=== PATIENT | female | born 1965 | race Caucasian/White ===

== ENCOUNTER 2017-12-01 18:58 | Emergency (ER) | payer BC ==
[2017-12-01] MEDS ORDERED: traMADol HCl 50 MG TAB ONE (20:05)
--- NOTE | 2017-12-01 22:52 | RAD ---
RIGHT LEG 12/01/17 AP and lateral views are provided. No fracture was detected. The tibia and fibula appear intact. Ther e is medial joint space narrowing and bony spurring at the knee. IMPRESSION: No acute bony findings. POS: HOME
--- NOTE | 2017-12-01 22:59 | RAD ---
RIGHT ANKLE THREE VIEWS: 12/01/17 No acute fracture was seen. The joint space may be slightly narrowed but otherwise appears normal. A little bit of bony spurring at the tip of the medial malleolus may be from old trauma. There is also some bone spurring in the intertarsal joints between the navicular and cuneiforms. There might have b een an old injury here. A large calcaneal spur is present. IMPRESSION: Chronic changes but no acute findings. POS: HOME
== END 2017-12-01 20:11 | disposition home or self-care (01) ==
LOC: BURERS 18:58
DX: S81.812A Laceration without foreign body, left lower leg, initial encounter (principal); S93.402A Sprain of unspecified ligament of left ankle, initial encounter; E11.9 Type 2 diabetes mellitus without complications; E78.5 Hyperlipidemia, unspecified; I10 Essential (primary) hypertension; F32.9 Major depressive disorder, single episode, unspecified; Z79.899 Other long term (current) drug therapy; Z79.84 Long term (current) use of oral hypoglycemic drugs; X50.1XXA Overexertion from prolonged static or awkward postures, initial encounter

== ENCOUNTER 2020-02-22 19:10 | Emergency (ER) | payer OTHER ==
--- NOTE | 2020-02-22 20:37 | RAD ---
PORTABLE CHEST: Date: 02-22-2020 An AP portable film at 2007 is compared with a 12-14-2011 study. FINDINGS: The sensitivity of this exam is quite low. The heart is enlarged as before. The vessels seem congested today. No obvious lobar consolidations we re seen, though the lung bases are difficult to see well. No large effusions are present but I cannot rule out some fluid on the right. IMPRESSION: Findings most suggestive of congestive failure. POS: HOME
== END 2020-02-22 21:08 | disposition short-term general hospital (02) ==
LOC: BURERS 19:10
DX: M79.89 Other specified soft tissue disorders (principal); I11.0 Hypertensive heart disease with heart failure; I50.9 Heart failure, unspecified; R79.1 Abnormal coagulation profile; E11.9 Type 2 diabetes mellitus without complications; E78.5 Hyperlipidemia, unspecified; E78.00 Pure hypercholesterolemia, unspecified; I10 Essential (primary) hypertension; F41.9 Anxiety disorder, unspecified; F32.9 Major depressive disorder, single episode, unspecified; Z79.899 Other long term (current) drug therapy; Z79.82 Long term (current) use of aspirin; Z79.84 Long term (current) use of oral hypoglycemic drugs
CPT/HCPCS: 36416; 71045; 84484; 85379; 93005; 94760

== ENCOUNTER 2020-03-03 08:46 | Inpatient (IN) | payer OTHER ==
[2020-03-04] MEDS ORDERED: metFORMIN 500 MG TAB PO SCH (17:00)
[2020-03-04] MEDS ORDERED: Dextrose 5% in Water 1,000 ML IV PRN (17:21)
[2020-03-04] MEDS ORDERED: Dextrose 50% Abboject 50 ML SYRINGE SLOW IVP PRN (17:21)
[2020-03-04] MEDS: Metoprolol Tartrate 25 MG TAB PO SCH (21:00)
[2020-03-04] MEDS: Rifampin 150 MG CAP PO SCH (21:44)
[2020-03-04] MEDS: Atorvastatin Calcium 40 MG TAB PO SCH (21:45)
[2020-03-04] MEDS: Amoxicillin/Potassium Clav 500 MG TAB PO SCH (21:45)
[2020-03-04] MEDS: Nystatin Powder 15 GM BOT TOP PRN (22:44)
[2020-03-05 05:39] LABS: ALT (SGPT) 16 U/L (8-55); AST (SGOT) 13 U/L (5-34); Albumin 3.4 g/dL (3.5-5.0); Alkaline Phosphatase 273 U/L (40-110); Anion Gap 12 mmol/L (10-20); BUN (Urea Nitrogen) 57 mg/dL (9.8-20.1); Bilirubin, Total 0.8 mg/dL (0.2-1.2); Calc. Creatinine Clearance 107 mL/min (70-130); Carbon Dioxide 27 mmol/L (22-29); Chloride 110 mmol/L (98-107); Estimated GFR-MDRD 31; Globulin 3.2 g/dL (2.4-3.5); Glucose 156 mg/dL (70-105); Potassium 4.3 mmol/L (3.5-5.1); Protein, Total 6.6 g/dL (6.0-8.3); Sodium 145 mmol/L (136-145)
[2020-03-05 05:44] LABS: #Basophils 0.1 thou/uL (0.0-0.2); #Eosinphils 0.2 thou/uL (0.0-0.7); #Lymphocytes 1.1 thou/uL (1.20-3.40); #Monocytes 1.1 thou/uL (0.11-0.59); #Neutrophils 6.4 thou/uL (1.40-6.50); %Basophils 1.1 % (0.0-1.0); %Lymphocytes 12.5 % (21.0-51.0); %Monocytes 12.2 % (0.0-10.0); %Neutrophils 72.3 % (42.0-75.0); Anisocytosis SLIGHT = 6-15 cells (100X) (0-5/hpf); Hemoglobin 10.2 g/dL (12.0-16.0); Hypochromia SLIGHT = 6-15 cells (100X) (0-5/hpf); MDiff Complete? YES; Mean Corpuscular HGB CONC 27.4 g/dL (32.0-36.0); Mean Corpuscular Hemoglobin 26.4 pg (27.0-31.0); Mean Corpuscular Volume 96.5 fL (78.0-98.0); Mean Platelet Volume 6.5 fL (7.4-10.4); Platelet Count 270 thou/uL (130-400); Platelet Morphology Comment Appears Adequate; RBC Distribution Width 18.3 % (11.5-14.5); Red Blood Cell (RBC) Count 3.87 mill/uL (4.20-5.40); Stomatocytes SLIGHT = 2-5 cells (100X) (0-1/hpf); White Blood Cell (WBC) Count 8.9 thou/uL (4.8-10.8)
[2020-03-05] MEDS: Lantus 1000 UNITS/10 ML VIAL SC SCH (08:59)
[2020-03-05] MEDS ORDERED: Losartan Potassium 50 MG TAB PO SCH (09:00)
[2020-03-05] MEDS ORDERED: Amlodipine 5 MG TAB PO SCH (09:00)
[2020-03-05] MEDS: Aspirin 81 mg Enteric Coated Tablet PO SCH (09:01)
[2020-03-05] MEDS: Folic Acid 1 MG TAB PO SCH (09:01)
[2020-03-05] MEDS: FLUoxetine HCl 10 MG CAP PO SCH (09:01)
[2020-03-05] MEDS: Losartan Potassium 50 MG TAB PO SCH (09:02)
[2020-03-05] MEDS: Furosemide 20 MG TAB PO SCH (09:02)
[2020-03-05] MEDS: Amoxicillin/Potassium Clav 500 MG TAB PO SCH ×2 (09:02→20:36)
[2020-03-05] MEDS: Rifampin 150 MG CAP PO SCH ×2 (09:03→20:37)
[2020-03-05] MEDS: Metoprolol Tartrate 25 MG TAB PO SCH ×3 (09:12→20:38)
[2020-03-05] MEDS: traMADol HCl 50 MG TAB PO PRN ×2 (11:27→20:36)
[2020-03-05] MEDS: Nystatin Powder 15 GM BOT TOP PRN (11:28)
[2020-03-05] MEDS: HumaLOG 300 UNITS/3 ML VIAL SC PRN ×3 (13:15→20:45)
[2020-03-05] MEDS: Atorvastatin Calcium 40 MG TAB PO SCH (20:37)
[2020-03-06] MEDS: Lantus 1000 UNITS/10 ML VIAL SC SCH (08:42)
[2020-03-06] MEDS: FLUoxetine HCl 10 MG CAP PO SCH (08:43)
[2020-03-06] MEDS: Amoxicillin/Potassium Clav 500 MG TAB PO SCH ×2 (08:44→21:52)
[2020-03-06] MEDS: Losartan Potassium 50 MG TAB PO SCH (08:44)
[2020-03-06] MEDS: Aspirin 81 mg Enteric Coated Tablet PO SCH (08:44)
[2020-03-06] MEDS: Rifampin 150 MG CAP PO SCH ×2 (08:44→21:51)
[2020-03-06] MEDS: Furosemide 20 MG TAB PO SCH (08:44)
[2020-03-06] MEDS: Folic Acid 1 MG TAB PO SCH (08:45)
[2020-03-06] MEDS: Metoprolol Tartrate 25 MG TAB PO SCH ×2 (08:53→21:52)
[2020-03-06] MEDS: traMADol HCl 50 MG TAB PO PRN (13:30)
[2020-03-06] MEDS: Atorvastatin Calcium 40 MG TAB PO SCH (21:51)
[2020-03-07] MEDS: traMADol HCl 50 MG TAB PO PRN ×2 (00:26→15:21)
[2020-03-07] MEDS: Metoprolol Tartrate 25 MG TAB PO SCH ×2 (08:49→20:52)
[2020-03-07] MEDS: FLUoxetine HCl 10 MG CAP PO SCH (08:49)
[2020-03-07] MEDS: Losartan Potassium 50 MG TAB PO SCH (08:49)
[2020-03-07] MEDS: Rifampin 150 MG CAP PO SCH ×2 (08:49→20:53)
[2020-03-07] MEDS: Aspirin 81 mg Enteric Coated Tablet PO SCH (08:50)
[2020-03-07] MEDS: Furosemide 20 MG TAB PO SCH (08:50)
[2020-03-07] MEDS: Folic Acid 1 MG TAB PO SCH (08:50)
[2020-03-07] MEDS: Amoxicillin/Potassium Clav 500 MG TAB PO SCH ×2 (08:50→20:52)
[2020-03-07] MEDS: Lantus 1000 UNITS/10 ML VIAL SC SCH (08:59)
[2020-03-07] MEDS: Atorvastatin Calcium 40 MG TAB PO SCH (20:52)
[2020-03-08] MEDS ORDERED: Furosemide 20 MG TAB PO SCH (07:30)
[2020-03-08] MEDS: Lantus 1000 UNITS/10 ML VIAL SC SCH (08:11)
[2020-03-08] MEDS: Losartan Potassium 50 MG TAB PO SCH (08:12)
[2020-03-08] MEDS: Rifampin 150 MG CAP PO SCH ×2 (08:12→21:33)
[2020-03-08] MEDS: Aspirin 81 mg Enteric Coated Tablet PO SCH (08:12)
[2020-03-08] MEDS: Furosemide 40 MG TAB PO SCH (08:12)
[2020-03-08] MEDS: FLUoxetine HCl 10 MG CAP PO SCH (08:12)
[2020-03-08] MEDS: Amoxicillin/Potassium Clav 500 MG TAB PO SCH ×2 (08:13→21:33)
[2020-03-08] MEDS: Folic Acid 1 MG TAB PO SCH (08:13)
[2020-03-08] MEDS: Metoprolol Tartrate 25 MG TAB PO SCH ×2 (08:37→21:33)
[2020-03-08] MEDS: Atorvastatin Calcium 40 MG TAB PO SCH (21:34)
[2020-03-09] MEDS: traMADol HCl 50 MG TAB PO PRN ×3 (01:21→20:44)
[2020-03-09] MEDS: FLUoxetine HCl 10 MG CAP PO SCH (08:41)
[2020-03-09] MEDS: Folic Acid 1 MG TAB PO SCH (08:41)
[2020-03-09] MEDS: Losartan Potassium 50 MG TAB PO SCH (08:41)
[2020-03-09] MEDS: Rifampin 150 MG CAP PO SCH ×2 (08:42→20:40)
[2020-03-09] MEDS: Aspirin 81 mg Enteric Coated Tablet PO SCH (08:42)
[2020-03-09] MEDS: Furosemide 40 MG TAB PO SCH (08:43)
[2020-03-09] MEDS: Amoxicillin/Potassium Clav 500 MG TAB PO SCH ×2 (08:43→20:40)
[2020-03-09] MEDS: Metoprolol Tartrate 25 MG TAB PO SCH ×2 (08:44→20:40)
[2020-03-09] MEDS: Lantus 1000 UNITS/10 ML VIAL SC SCH (09:08)
[2020-03-09] MEDS: Nystatin Powder 15 GM BOT TOP PRN (14:58)
[2020-03-09] MEDS: Atorvastatin Calcium 40 MG TAB PO SCH (20:40)
[2020-03-10 05:40] LABS: ALT (SGPT) 14 U/L (8-55); AST (SGOT) 14 U/L (5-34); Albumin 3.2 g/dL (3.5-5.0); Alkaline Phosphatase 271 U/L (40-110); Anion Gap 13 mmol/L (10-20); BUN (Urea Nitrogen) 71 mg/dL (9.8-20.1); Bilirubin, Total 0.5 mg/dL (0.2-1.2); Calc. Creatinine Clearance 95 mL/min (70-130); Calcium 8.7 mg/dL (7.8-10.44); Carbon Dioxide 26 mmol/L (22-29); Chloride 111 mmol/L (98-107); Estimated GFR-MDRD 26; Globulin 3.2 g/dL (2.4-3.5); Glucose 68 mg/dL (70-105); Potassium 4.9 mmol/L (3.5-5.1); Protein, Total 6.4 g/dL (6.0-8.3); Sodium 145 mmol/L (136-145)
[2020-03-10 05:47] LABS: #Eosinphils 0.2 thou/uL (0.0-0.7); #Lymphocytes 1.2 thou/uL (1.20-3.40); #Monocytes 0.7 thou/uL (0.11-0.59); #Neutrophils 4.4 thou/uL (1.40-6.50); %Basophils 0.6 % (0.0-1.0); %Eosinophils 2.9 % (0.0-10.0); %Lymphocytes 18.1 % (21.0-51.0); %Monocytes 10.1 % (0.0-10.0); %Neutrophils 68.2 % (42.0-75.0); Hemoglobin 9.9 g/dL (12.0-16.0); Mean Corpuscular HGB CONC 27.9 g/dL (32.0-36.0); Mean Corpuscular Hemoglobin 26.7 pg (27.0-31.0); Mean Corpuscular Volume 95.8 fL (78.0-98.0); Mean Platelet Volume 7.2 fL (7.4-10.4); Platelet Count 252 thou/uL (130-400); Red Blood Cell (RBC) Count 3.69 mill/uL (4.20-5.40); White Blood Cell (WBC) Count 6.4 thou/uL (4.8-10.8)
[2020-03-10 05:51] LABS: Anisocytosis MODERATE=16-30 cells (100X) (0-5/hpf); MDiff Complete? YES; Platelet Morphology Comment Appears Adequate
[2020-03-10] MEDS: Furosemide 40 MG TAB PO SCH (08:32)
[2020-03-10] MEDS: Rifampin 150 MG CAP PO SCH ×2 (08:32→21:01)
[2020-03-10] MEDS: FLUoxetine HCl 10 MG CAP PO SCH (08:32)
[2020-03-10] MEDS: Folic Acid 1 MG TAB PO SCH (08:33)
[2020-03-10] MEDS: Losartan Potassium 50 MG TAB PO SCH (08:33)
[2020-03-10] MEDS: traMADol HCl 50 MG TAB PO PRN ×2 (08:33→21:00)
[2020-03-10] MEDS: Aspirin 81 mg Enteric Coated Tablet PO SCH (08:33)
[2020-03-10] MEDS: Metoprolol Tartrate 25 MG TAB PO SCH ×2 (08:33→21:01)
[2020-03-10] MEDS: Lantus 1000 UNITS/10 ML VIAL SC SCH (08:45)
[2020-03-10] MEDS: Nystatin Powder 15 GM BOT TOP PRN (14:24)
[2020-03-10] MEDS: Atorvastatin Calcium 40 MG TAB PO SCH (21:01)
[2020-03-11] MEDS: Ondansetron ODT 4 MG TAB PO PRN (08:42)
[2020-03-11] MEDS: FLUoxetine HCl 10 MG CAP PO SCH (09:37)
[2020-03-11] MEDS: Furosemide 40 MG TAB PO SCH (09:38)
[2020-03-11] MEDS: Rifampin 150 MG CAP PO SCH ×2 (09:38→21:22)
[2020-03-11] MEDS: Folic Acid 1 MG TAB PO SCH (09:38)
[2020-03-11] MEDS: Metoprolol Tartrate 25 MG TAB PO SCH ×2 (09:38→21:58)
[2020-03-11] MEDS: Losartan Potassium 50 MG TAB PO SCH (09:38)
[2020-03-11] MEDS: Aspirin 81 mg Enteric Coated Tablet PO SCH (09:43)
[2020-03-11] MEDS: hydrALAZINE 25 MG TAB PO SCH ×2 (15:15→21:23)
[2020-03-11] MEDS: cloNIDine 0.1 MG TAB PO PRN (15:22)
[2020-03-11] MEDS ORDERED: cloNIDine 0.1 MG TAB PO SCH (21:00)
[2020-03-11] MEDS: Atorvastatin Calcium 40 MG TAB PO SCH (21:22)
[2020-03-12] MEDS: FLUoxetine HCl 10 MG CAP PO SCH (09:01)
[2020-03-12] MEDS: Folic Acid 1 MG TAB PO SCH (09:02)
[2020-03-12] MEDS: Aspirin 81 mg Enteric Coated Tablet PO SCH (09:02)
[2020-03-12] MEDS: Rifampin 150 MG CAP PO SCH ×2 (09:02→21:18)
[2020-03-12] MEDS: Losartan Potassium 50 MG TAB PO SCH (09:03)
[2020-03-12] MEDS: Furosemide 40 MG TAB PO SCH ×2 (09:03→21:19)
[2020-03-12] MEDS: hydrALAZINE 25 MG TAB PO SCH ×3 (09:03→21:19)
[2020-03-12] MEDS: Metoprolol Tartrate 25 MG TAB PO SCH ×2 (09:04→21:18)
[2020-03-12] MEDS: traMADol HCl 50 MG TAB PO PRN ×2 (09:07→17:38)
[2020-03-12] MEDS: cloNIDine 0.1 MG TAB PO PRN (09:09)
[2020-03-12] MEDS: HumaLOG 300 UNITS/3 ML VIAL SC PRN ×3 (12:39→21:18)
[2020-03-12] MEDS: Lantus 1000 UNITS/10 ML VIAL SC SCH (21:17)
[2020-03-12] MEDS: Enoxaparin Sodium 40 MG/0.4 ML SYRINGE SC SCH (21:18)
[2020-03-12] MEDS: Atorvastatin Calcium 40 MG TAB PO SCH (21:18)
[2020-03-13] MEDS: Losartan Potassium 50 MG TAB PO SCH (08:09)
[2020-03-13] MEDS: Folic Acid 1 MG TAB PO SCH (08:09)
[2020-03-13] MEDS: Furosemide 40 MG TAB PO SCH ×2 (08:09→13:56)
[2020-03-13] MEDS: Metoprolol Tartrate 25 MG TAB PO SCH ×2 (08:09→20:55)
[2020-03-13] MEDS: hydrALAZINE 25 MG TAB PO SCH ×3 (08:10→20:54)
[2020-03-13] MEDS: FLUoxetine HCl 10 MG CAP PO SCH (08:10)
[2020-03-13] MEDS: Aspirin 81 mg Enteric Coated Tablet PO SCH (08:11)
[2020-03-13] MEDS: Rifampin 150 MG CAP PO SCH ×2 (08:11→20:55)
[2020-03-13] MEDS: traMADol HCl 50 MG TAB PO PRN (08:12)
[2020-03-13 13:41] LABS: Anion Gap 14 mmol/L (10-20); BUN (Urea Nitrogen) 69 mg/dL (9.8-20.1); Calc. Creatinine Clearance 96 mL/min (70-130); Calcium 8.8 mg/dL (7.8-10.44); Carbon Dioxide 28 mmol/L (22-29); Chloride 109 mmol/L (98-107); Estimated GFR-MDRD 28; Glucose 151 mg/dL (70-105); Potassium 5.8 mmol/L (3.5-5.1); Sodium 145 mmol/L (136-145)
--- NOTE | 2020-03-13 14:00 | RAD ---
PORTABLE CHEST: 03/13/20 Comparison is made with the prior study of 02/27/20. This portable film at 1315 shows moderate cardiomegaly, diffuse vascular congestion and edema, and so me bilateral pleural effusions. Concurrent infiltrate could be present beneath all the edema, but one cannot be sure about this. IMPRESSION: Interval development of congestive heart failure. Preliminary report taken to the floor at approximately 1345 on 03/13/2020. POS: HOME
[2020-03-13] MEDS: HumaLOG 300 UNITS/3 ML VIAL SC PRN (17:29)
[2020-03-13] MEDS ORDERED: Metolazone 5 MG TAB PO SCH (19:30)
[2020-03-13] MEDS: Atorvastatin Calcium 40 MG TAB PO SCH (20:54)
[2020-03-13] MEDS: Lantus 1000 UNITS/10 ML VIAL SC SCH (21:12)
[2020-03-13] MEDS: Enoxaparin Sodium 40 MG/0.4 ML SYRINGE SC SCH (21:12)
[2020-03-14] MEDS: Furosemide 40 MG TAB PO SCH ×2 (06:01→13:10)
[2020-03-14] MEDS: Aspirin 81 mg Enteric Coated Tablet PO SCH (09:26)
[2020-03-14] MEDS: Rifampin 150 MG CAP PO SCH ×2 (09:26→21:01)
[2020-03-14] MEDS: FLUoxetine HCl 10 MG CAP PO SCH (09:26)
[2020-03-14] MEDS: Folic Acid 1 MG TAB PO SCH (09:26)
[2020-03-14] MEDS: Metoprolol Tartrate 25 MG TAB PO SCH ×2 (09:34→21:01)
[2020-03-14] MEDS: traMADol HCl 50 MG TAB PO PRN (09:39)
[2020-03-14] MEDS: Losartan Potassium 50 MG TAB PO SCH (10:45)
[2020-03-14] MEDS: hydrALAZINE 25 MG TAB PO SCH ×3 (10:45→21:01)
[2020-03-14] MEDS: HumaLOG 300 UNITS/3 ML VIAL SC PRN ×2 (13:11→17:35)
[2020-03-14] MEDS: Atorvastatin Calcium 40 MG TAB PO SCH (21:01)
[2020-03-14] MEDS: Lantus 1000 UNITS/10 ML VIAL SC SCH (21:04)
[2020-03-14] MEDS: Enoxaparin Sodium 40 MG/0.4 ML SYRINGE SC SCH (21:09)
[2020-03-15 05:29] LABS: ALT (SGPT) 12 U/L (8-55); AST (SGOT) 14 U/L (5-34); Albumin 3.4 g/dL (3.5-5.0); Alkaline Phosphatase 247 U/L (40-110); Anion Gap 15 mmol/L (10-20); BUN (Urea Nitrogen) 64 mg/dL (9.8-20.1); Bilirubin, Total 0.5 mg/dL (0.2-1.2); Calc. Creatinine Clearance 99 mL/min (70-130); Calcium 8.7 mg/dL (7.8-10.44); Carbon Dioxide 26 mmol/L (22-29); Chloride 110 mmol/L (98-107); Estimated GFR-MDRD 28; Globulin 3.3 g/dL (2.4-3.5); Glucose 159 mg/dL (70-105); Potassium 5.6 mmol/L (3.5-5.1); Protein, Total 6.7 g/dL (6.0-8.3); Sodium 145 mmol/L (136-145)
[2020-03-15] MEDS: Furosemide 40 MG TAB PO SCH ×2 (05:45→13:09)
[2020-03-15 05:47] LABS: #Basophils 0.1 thou/uL (0.0-0.2); #Eosinphils 0.2 thou/uL (0.0-0.7); #Lymphocytes 1.4 thou/uL (1.20-3.40); #Monocytes 0.7 thou/uL (0.11-0.59); #Neutrophils 4.8 thou/uL (1.40-6.50); %Basophils 0.9 % (0.0-1.0); %Eosinophils 2.5 % (0.0-10.0); %Lymphocytes 19.4 % (21.0-51.0); %Monocytes 9.9 % (0.0-10.0); %Neutrophils 67.4 % (42.0-75.0); Anisocytosis SLIGHT = 6-15 cells (100X) (0-5/hpf); Hemoglobin 9.6 g/dL (12.0-16.0); MDiff Complete? YES; Mean Corpuscular HGB CONC 27.2 g/dL (32.0-36.0); Mean Corpuscular Volume 99.1 fL (78.0-98.0); Mean Platelet Volume 7.1 fL (7.4-10.4); Ovalocytes SLIGHT = 2-5 cells (100X) (0-1/hpf); Platelet Count 206 thou/uL (130-400); Platelet Morphology Comment Appears Adequate; RBC Distribution Width 18.4 % (11.5-14.5); Red Blood Cell (RBC) Count 3.54 mill/uL (4.20-5.40); White Blood Cell (WBC) Count 7.1 thou/uL (4.8-10.8)
[2020-03-15] MEDS ORDERED: Metolazone 5 MG TAB PO SCH (08:30)
[2020-03-15] MEDS: Ondansetron ODT 4 MG TAB PO PRN (08:52)
[2020-03-15] MEDS: traMADol HCl 50 MG TAB PO PRN (08:52)
[2020-03-15] MEDS: Heparin 5,000 UNITS/ML VIAL SC SCH ×2 (10:12→21:48)
[2020-03-15] MEDS: Aspirin 81 mg Enteric Coated Tablet PO SCH (10:15)
[2020-03-15] MEDS: Folic Acid 1 MG TAB PO SCH (10:16)
[2020-03-15] MEDS: FLUoxetine HCl 10 MG CAP PO SCH (10:16)
[2020-03-15] MEDS: Metoprolol Tartrate 25 MG TAB PO SCH ×2 (10:17→21:49)
[2020-03-15] MEDS: hydrALAZINE 25 MG TAB PO SCH ×3 (10:19→21:50)
[2020-03-15] MEDS: Losartan Potassium 50 MG TAB PO SCH (10:19)
[2020-03-15] MEDS: HumaLOG 300 UNITS/3 ML VIAL SC PRN ×2 (13:09→17:25)
[2020-03-15] MEDS: Lantus 1000 UNITS/10 ML VIAL SC SCH (21:47)
[2020-03-15] MEDS: Atorvastatin Calcium 40 MG TAB PO SCH (21:48)
[2020-03-16 04:34] LABS: Anion Gap 14 mmol/L (10-20); BUN (Urea Nitrogen) 61 mg/dL (9.8-20.1); Calc. Creatinine Clearance 99 mL/min (70-130); Calcium 8.5 mg/dL (7.8-10.44); Carbon Dioxide 27 mmol/L (22-29); Chloride 109 mmol/L (98-107); Estimated GFR-MDRD 29; Glucose 126 mg/dL (70-105); Potassium 5.5 mmol/L (3.5-5.1); Sodium 144 mmol/L (136-145)
[2020-03-16 04:43] LABS: #Basophils 0.1 thou/uL (0.0-0.2); #Eosinphils 0.2 thou/uL (0.0-0.7); #Lymphocytes 1.4 thou/uL (1.20-3.40); #Monocytes 0.6 thou/uL (0.11-0.59); #Neutrophils 4.5 thou/uL (1.40-6.50); %Basophils 0.9 % (0.0-1.0); %Eosinophils 3.1 % (0.0-10.0); %Lymphocytes 20.5 % (21.0-51.0); %Monocytes 9.3 % (0.0-10.0); %Neutrophils 66.3 % (42.0-75.0); Anisocytosis SLIGHT = 6-15 cells (100X) (0-5/hpf); Hemoglobin 9.3 g/dL (12.0-16.0); MDiff Complete? YES; Mean Corpuscular HGB CONC 27.9 g/dL (32.0-36.0); Mean Corpuscular Hemoglobin 27.1 pg (27.0-31.0); Mean Corpuscular Volume 97.2 fL (78.0-98.0); Mean Platelet Volume 7.2 fL (7.4-10.4); Ovalocytes SLIGHT = 2-5 cells (100X) (0-1/hpf); Platelet Count 192 thou/uL (130-400); Platelet Morphology Comment Appears Adequate; RBC Distribution Width 18.8 % (11.5-14.5); Red Blood Cell (RBC) Count 3.42 mill/uL (4.20-5.40); White Blood Cell (WBC) Count 6.8 thou/uL (4.8-10.8)
[2020-03-16] MEDS: Furosemide 40 MG TAB PO SCH ×2 (05:17→13:24)
[2020-03-16] MEDS: Ondansetron ODT 4 MG TAB PO PRN (09:02)
[2020-03-16] MEDS: traMADol HCl 50 MG TAB PO PRN ×2 (09:02→19:47)
[2020-03-16] MEDS: Metolazone 5 MG TAB PO SCH (09:05)
[2020-03-16] MEDS: Losartan Potassium 50 MG TAB PO SCH (09:57)
[2020-03-16] MEDS: FLUoxetine HCl 10 MG CAP PO SCH (09:57)
[2020-03-16] MEDS: Aspirin 81 mg Enteric Coated Tablet PO SCH (09:58)
[2020-03-16] MEDS: Metoprolol Tartrate 25 MG TAB PO SCH ×2 (09:58→21:33)
[2020-03-16] MEDS: Folic Acid 1 MG TAB PO SCH (09:58)
[2020-03-16] MEDS: hydrALAZINE 25 MG TAB PO SCH ×3 (09:59→21:32)
[2020-03-16] MEDS: Heparin 5,000 UNITS/ML VIAL SC SCH ×2 (10:05→21:30)
[2020-03-16] MEDS: HumaLOG 300 UNITS/3 ML VIAL SC PRN (17:44)
[2020-03-16] MEDS: Atorvastatin Calcium 40 MG TAB PO SCH (21:33)
[2020-03-16] MEDS: Lantus 1000 UNITS/10 ML VIAL SC SCH (21:34)
[2020-03-17] MEDS: Furosemide 40 MG TAB PO SCH ×2 (05:25→14:09)
[2020-03-17 05:30] LABS: ALT (SGPT) 19 U/L (8-55); AST (SGOT) 22 U/L (5-34); Albumin 3.3 g/dL (3.5-5.0); Alkaline Phosphatase 245 U/L (40-110); Anion Gap 13 mmol/L (10-20); BUN (Urea Nitrogen) 58 mg/dL (9.8-20.1); Bilirubin, Total 0.4 mg/dL (0.2-1.2); Calc. Creatinine Clearance 106 mL/min (70-130); Calcium 8.4 mg/dL (7.8-10.44); Carbon Dioxide 28 mmol/L (22-29); Chloride 108 mmol/L (98-107); Estimated GFR-MDRD 31; Globulin 3.3 g/dL (2.4-3.5); Glucose 124 mg/dL (70-105); Potassium 4.8 mmol/L (3.5-5.1); Protein, Total 6.6 g/dL (6.0-8.3); Sodium 144 mmol/L (136-145)
[2020-03-17 06:04] LABS: #Eosinphils 0.2 thou/uL (0.0-0.7); #Lymphocytes 1.4 thou/uL (1.20-3.40); #Monocytes 0.7 thou/uL (0.11-0.59); #Neutrophils 4.3 thou/uL (1.40-6.50); %Basophils 0.7 % (0.0-1.0); %Lymphocytes 20.7 % (21.0-51.0); %Monocytes 10.7 % (0.0-10.0); %Neutrophils 64.9 % (42.0-75.0); Anisocytosis SLIGHT = 6-15 cells (100X) (0-5/hpf); Hemoglobin 9.1 g/dL (12.0-16.0); MDiff Complete? YES; Mean Corpuscular HGB CONC 27.6 g/dL (32.0-36.0); Mean Corpuscular Hemoglobin 27.1 pg (27.0-31.0); Mean Corpuscular Volume 98.2 fL (78.0-98.0); Mean Platelet Volume 7.4 fL (7.4-10.4); Ovalocytes SLIGHT = 2-5 cells (100X) (0-1/hpf); Platelet Count 187 thou/uL (130-400); Platelet Morphology Comment Appears Adequate; RBC Distribution Width 18.4 % (11.5-14.5); Red Blood Cell (RBC) Count 3.35 mill/uL (4.20-5.40); White Blood Cell (WBC) Count 6.7 thou/uL (4.8-10.8)
[2020-03-17] MEDS: FLUoxetine HCl 10 MG CAP PO SCH (09:09)
[2020-03-17] MEDS: hydrALAZINE 25 MG TAB PO SCH ×3 (09:11→21:26)
[2020-03-17] MEDS: Metolazone 5 MG TAB PO SCH (09:11)
[2020-03-17] MEDS: Folic Acid 1 MG TAB PO SCH (09:11)
[2020-03-17] MEDS: Aspirin 81 mg Enteric Coated Tablet PO SCH (09:12)
[2020-03-17] MEDS: Losartan Potassium 50 MG TAB PO SCH (09:12)
[2020-03-17] MEDS: Ondansetron ODT 4 MG TAB PO PRN (09:12)
[2020-03-17] MEDS: Metoprolol Tartrate 25 MG TAB PO SCH ×2 (09:13→21:26)
[2020-03-17] MEDS: traMADol HCl 50 MG TAB PO PRN (09:14)
[2020-03-17] MEDS: Heparin 5,000 UNITS/ML VIAL SC SCH ×2 (09:17→21:27)
[2020-03-17] MEDS: Lantus 1000 UNITS/10 ML VIAL SC SCH (21:27)
[2020-03-17] MEDS: Atorvastatin Calcium 40 MG TAB PO SCH (21:27)
[2020-03-18] MEDS: Furosemide 40 MG TAB PO SCH ×2 (05:57→14:13)
[2020-03-18] MEDS: FLUoxetine HCl 10 MG CAP PO SCH (08:27)
[2020-03-18] MEDS: Heparin 5,000 UNITS/ML VIAL SC SCH ×2 (08:27→20:45)
[2020-03-18] MEDS: hydrALAZINE 25 MG TAB PO SCH ×3 (08:29→20:47)
[2020-03-18] MEDS: Losartan Potassium 50 MG TAB PO SCH (08:29)
[2020-03-18] MEDS: Folic Acid 1 MG TAB PO SCH (08:30)
[2020-03-18] MEDS: Metolazone 5 MG TAB PO SCH (08:30)
[2020-03-18] MEDS: Aspirin 81 mg Enteric Coated Tablet PO SCH (08:31)
[2020-03-18] MEDS: Metoprolol Tartrate 25 MG TAB PO SCH ×2 (08:31→20:47)
[2020-03-18] MEDS: traMADol HCl 50 MG TAB PO PRN ×2 (08:35→23:45)
[2020-03-18] MEDS: Lantus 1000 UNITS/10 ML VIAL SC SCH (20:43)
[2020-03-18] MEDS: Atorvastatin Calcium 40 MG TAB PO SCH (20:47)
[2020-03-19] MEDS: Furosemide 40 MG TAB PO SCH ×2 (05:23→14:56)
[2020-03-19 05:59] LABS: ALT (SGPT) 17 U/L (8-55); AST (SGOT) 16 U/L (5-34); Albumin 3.4 g/dL (3.5-5.0); Alkaline Phosphatase 254 U/L (40-110); Anion Gap 12 mmol/L (10-20); BUN (Urea Nitrogen) 54 mg/dL (9.8-20.1); Bilirubin, Total 0.4 mg/dL (0.2-1.2); Calc. Creatinine Clearance 108 mL/min (70-130); Calcium 8.6 mg/dL (7.8-10.44); Carbon Dioxide 31 mmol/L (22-29); Chloride 106 mmol/L (98-107); Estimated GFR-MDRD 32; Globulin 3.3 g/dL (2.4-3.5); Glucose 98 mg/dL (70-105); Potassium 4.4 mmol/L (3.5-5.1); Protein, Total 6.7 g/dL (6.0-8.3); Sodium 145 mmol/L (136-145)
[2020-03-19 06:15] LABS: Anisocytosis SLIGHT = 6-15 cells (100X) (0-5/hpf); Eosinophils 2 % (0-10); Hemoglobin 8.9 g/dL (12.0-16.0); Lymphocytes 18 % (21-51); MDiff Complete? YES; Mean Corpuscular Volume 96.7 fL (78.0-98.0); Mean Platelet Volume 7.2 fL (7.4-10.4); Monocytes 7 % (0-10); Neutrophil 73 % (42-75); Platelet Count 167 thou/uL (130-400); Platelet Morphology Comment Appears Adequate; Red Blood Cell (RBC) Count 3.28 mill/uL (4.20-5.40); White Blood Cell (WBC) Count 5.9 thou/uL (4.8-10.8)
[2020-03-19] MEDS: FLUoxetine HCl 10 MG CAP PO SCH (09:04)
[2020-03-19] MEDS: Aspirin 81 mg Enteric Coated Tablet PO SCH (09:05)
[2020-03-19] MEDS: Metoprolol Tartrate 25 MG TAB PO SCH ×2 (09:06→20:22)
[2020-03-19] MEDS: Metolazone 5 MG TAB PO SCH (09:06)
[2020-03-19] MEDS: Folic Acid 1 MG TAB PO SCH (09:06)
[2020-03-19] MEDS: Losartan Potassium 50 MG TAB PO SCH (09:07)
[2020-03-19] MEDS: Heparin 5,000 UNITS/ML VIAL SC SCH (09:10)
[2020-03-19] MEDS: hydrALAZINE 25 MG TAB PO SCH ×3 (09:16→20:25)
[2020-03-19] MEDS: traMADol HCl 50 MG TAB PO PRN ×2 (09:22→18:59)
[2020-03-19] MEDS ORDERED: Metolazone 5 MG TAB PO SCH (10:45)
[2020-03-19] MEDS: Atorvastatin Calcium 40 MG TAB PO SCH (20:25)
[2020-03-19] MEDS: Lantus 1000 UNITS/10 ML VIAL SC SCH (20:26)
[2020-03-20] MEDS: Furosemide 40 MG TAB PO SCH ×2 (05:07→14:12)
[2020-03-20] MEDS: traMADol HCl 50 MG TAB PO PRN ×2 (08:39→20:42)
[2020-03-20] MEDS: hydrALAZINE 25 MG TAB PO SCH ×3 (08:40→20:37)
[2020-03-20] MEDS: FLUoxetine HCl 10 MG CAP PO SCH (08:41)
[2020-03-20] MEDS: Metoprolol Tartrate 25 MG TAB PO SCH ×2 (08:42→20:37)
[2020-03-20] MEDS: Aspirin 81 mg Enteric Coated Tablet PO SCH (08:42)
[2020-03-20] MEDS: Losartan Potassium 50 MG TAB PO SCH (08:42)
[2020-03-20] MEDS: Folic Acid 1 MG TAB PO SCH (08:42)
[2020-03-20] MEDS: cloNIDine 0.1 MG TAB PO PRN (09:53)
[2020-03-20] MEDS: Atorvastatin Calcium 40 MG TAB PO SCH (20:37)
[2020-03-20] MEDS: Lantus 1000 UNITS/10 ML VIAL SC SCH (20:38)
[2020-03-21] MEDS: Furosemide 40 MG TAB PO SCH ×2 (05:24→14:03)
[2020-03-21 05:48] LABS: Hemoglobin 8.8 g/dL (12.0-16.0); Platelet Count 169 thou/uL (130-400)
[2020-03-21] MEDS: FLUoxetine HCl 10 MG CAP PO SCH (09:00)
[2020-03-21] MEDS: Metoprolol Tartrate 25 MG TAB PO SCH ×2 (09:01→21:53)
[2020-03-21] MEDS: Folic Acid 1 MG TAB PO SCH (09:02)
[2020-03-21] MEDS: hydrALAZINE 25 MG TAB PO SCH ×3 (09:02→21:53)
[2020-03-21] MEDS: Losartan Potassium 50 MG TAB PO SCH (09:03)
[2020-03-21] MEDS: Aspirin 81 mg Enteric Coated Tablet PO SCH (09:03)
[2020-03-21] MEDS: cloNIDine 0.1 MG TAB PO PRN (14:04)
[2020-03-21] MEDS: Atorvastatin Calcium 40 MG TAB PO SCH (21:53)
[2020-03-21] MEDS: Lantus 1000 UNITS/10 ML VIAL SC SCH (21:54)
[2020-03-22 05:57] LABS: ALT (SGPT) 22 U/L (8-55); AST (SGOT) 23 U/L (5-34); Albumin 3.4 g/dL (3.5-5.0); Alkaline Phosphatase 252 U/L (40-110); Anion Gap 14 mmol/L (10-20); BUN (Urea Nitrogen) 49 mg/dL (9.8-20.1); Bilirubin, Total 0.4 mg/dL (0.2-1.2); Calc. Creatinine Clearance 106 mL/min (70-130); Calcium 8.8 mg/dL (7.8-10.44); Carbon Dioxide 31 mmol/L (22-29); Chloride 103 mmol/L (98-107); Estimated GFR-MDRD 32; Globulin 3.2 g/dL (2.4-3.5); Glucose 126 mg/dL (70-105); Potassium 4.8 mmol/L (3.5-5.1); Protein, Total 6.6 g/dL (6.0-8.3); Sodium 143 mmol/L (136-145)
[2020-03-22 06:10] LABS: #Eosinphils 0.2 thou/uL (0.0-0.7); #Lymphocytes 1.1 thou/uL (1.20-3.40); #Monocytes 0.7 thou/uL (0.11-0.59); #Neutrophils 4.7 thou/uL (1.40-6.50); %Basophils 0.6 % (0.0-1.0); %Eosinophils 2.6 % (0.0-10.0); %Lymphocytes 16.1 % (21.0-51.0); %Monocytes 10.6 % (0.0-10.0); %Neutrophils 70.1 % (42.0-75.0); Anisocytosis MODERATE=16-30 cells (100X) (0-5/hpf); Hemoglobin 8.8 g/dL (12.0-16.0); MDiff Complete? YES; Mean Corpuscular Hemoglobin 27.2 pg (27.0-31.0); Mean Corpuscular Volume 97.4 fL (78.0-98.0); Mean Platelet Volume 7.5 fL (7.4-10.4); Platelet Count 175 thou/uL (130-400); Platelet Morphology Comment Appears Adequate; RBC Distribution Width 19.3 % (11.5-14.5); Red Blood Cell (RBC) Count 3.22 mill/uL (4.20-5.40); White Blood Cell (WBC) Count 6.6 thou/uL (4.8-10.8)
[2020-03-22] MEDS: Furosemide 40 MG TAB PO SCH ×2 (06:25→14:18)
[2020-03-22] MEDS: Aspirin 81 mg Enteric Coated Tablet PO SCH (08:34)
[2020-03-22] MEDS: Losartan Potassium 50 MG TAB PO SCH (08:34)
[2020-03-22] MEDS: Metolazone 5 MG TAB PO SCH (08:34)
[2020-03-22] MEDS: Metoprolol Tartrate 25 MG TAB PO SCH ×2 (08:35→20:59)
[2020-03-22] MEDS: Folic Acid 1 MG TAB PO SCH (08:35)
[2020-03-22] MEDS: hydrALAZINE 25 MG TAB PO SCH ×3 (08:36→21:00)
[2020-03-22] MEDS: FLUoxetine HCl 10 MG CAP PO SCH (08:37)
[2020-03-22] MEDS: Ondansetron ODT 4 MG TAB PO PRN (13:31)
[2020-03-22] MEDS: traMADol HCl 50 MG TAB PO PRN (13:31)
[2020-03-22] MEDS: Lantus 1000 UNITS/10 ML VIAL SC SCH (20:58)
[2020-03-22] MEDS: Atorvastatin Calcium 40 MG TAB PO SCH (20:59)
[2020-03-23] MEDS: traMADol HCl 50 MG TAB PO PRN ×2 (01:33→23:18)
[2020-03-23 05:55] LABS: Platelet Count 171 thou/uL (130-400)
[2020-03-23] MEDS: Furosemide 40 MG TAB PO SCH ×2 (06:20→14:22)
[2020-03-23] MEDS: FLUoxetine HCl 10 MG CAP PO SCH (09:06)
[2020-03-23] MEDS: Aspirin 81 mg Enteric Coated Tablet PO SCH (09:06)
[2020-03-23] MEDS: Losartan Potassium 50 MG TAB PO SCH (09:07)
[2020-03-23] MEDS: Metoprolol Tartrate 25 MG TAB PO SCH ×2 (09:07→20:38)
[2020-03-23] MEDS: hydrALAZINE 25 MG TAB PO SCH ×3 (09:07→20:38)
[2020-03-23] MEDS: Folic Acid 1 MG TAB PO SCH (09:07)
[2020-03-23] MEDS: Ondansetron ODT 4 MG TAB PO PRN (10:18)
[2020-03-23] MEDS: Nystatin Powder 15 GM BOT TOP PRN (14:22)
[2020-03-23] MEDS: HumaLOG 300 UNITS/3 ML VIAL SC PRN (18:10)
[2020-03-23] MEDS: Atorvastatin Calcium 40 MG TAB PO SCH (20:38)
[2020-03-23] MEDS: Lantus 1000 UNITS/10 ML VIAL SC SCH (20:41)
[2020-03-24] MEDS: Furosemide 40 MG TAB PO SCH ×2 (06:02→15:16)
[2020-03-24 08:34] VITALS: BMI 66.2
[2020-03-24] MEDS: FLUoxetine HCl 10 MG CAP PO SCH (09:07)
[2020-03-24] MEDS: Metoprolol Tartrate 25 MG TAB PO SCH ×2 (09:08→20:52)
[2020-03-24] MEDS: Folic Acid 1 MG TAB PO SCH (09:09)
[2020-03-24] MEDS: Metolazone 5 MG TAB PO SCH (09:09)
[2020-03-24] MEDS: Losartan Potassium 50 MG TAB PO SCH (09:09)
[2020-03-24] MEDS: Aspirin 81 mg Enteric Coated Tablet PO SCH (09:09)
[2020-03-24] MEDS: hydrALAZINE 25 MG TAB PO SCH ×3 (09:10→20:52)
[2020-03-24] MEDS: Nystatin Powder 15 GM BOT TOP PRN (11:49)
[2020-03-24] MEDS: HumaLOG 300 UNITS/3 ML VIAL SC PRN ×2 (13:40→17:41)
[2020-03-24] MEDS: Atorvastatin Calcium 40 MG TAB PO SCH (20:52)
[2020-03-24] MEDS: Lantus 1000 UNITS/10 ML VIAL SC SCH (20:52)
[2020-03-24] MEDS: traMADol HCl 50 MG TAB PO PRN (20:53)
[2020-03-25 05:34] LABS: Platelet Count 175 thou/uL (130-400)
[2020-03-25] MEDS: Furosemide 40 MG TAB PO SCH ×2 (05:42→13:52)
[2020-03-25] MEDS: FLUoxetine HCl 10 MG CAP PO SCH (09:20)
[2020-03-25] MEDS: Aspirin 81 mg Enteric Coated Tablet PO SCH (09:20)
[2020-03-25] MEDS: hydrALAZINE 25 MG TAB PO SCH ×3 (09:24→21:03)
[2020-03-25] MEDS: Folic Acid 1 MG TAB PO SCH (09:24)
[2020-03-25] MEDS: Losartan Potassium 50 MG TAB PO SCH (09:25)
[2020-03-25] MEDS: Metoprolol Tartrate 25 MG TAB PO SCH ×2 (09:25→21:04)
[2020-03-25] MEDS: traMADol HCl 50 MG TAB PO PRN (13:51)
[2020-03-25] MEDS: HumaLOG 300 UNITS/3 ML VIAL SC PRN (17:38)
[2020-03-25] MEDS: Atorvastatin Calcium 40 MG TAB PO SCH (21:03)
[2020-03-25] MEDS: Lantus 1000 UNITS/10 ML VIAL SC SCH (21:16)
[2020-03-26] MEDS: Furosemide 40 MG TAB PO SCH ×2 (06:04→14:33)
[2020-03-26] MEDS: FLUoxetine HCl 10 MG CAP PO SCH (08:05)
[2020-03-26] MEDS: Losartan Potassium 50 MG TAB PO SCH (08:05)
[2020-03-26] MEDS: Folic Acid 1 MG TAB PO SCH (08:05)
[2020-03-26] MEDS: Metoprolol Tartrate 25 MG TAB PO SCH (08:06)
[2020-03-26] MEDS: hydrALAZINE 25 MG TAB PO SCH ×2 (08:07→14:33)
[2020-03-26] MEDS: Aspirin 81 mg Enteric Coated Tablet PO SCH (08:08)
[2020-03-26] MEDS: Metolazone 5 MG TAB PO SCH (08:08)
[2020-03-26] MEDS: traMADol HCl 50 MG TAB PO PRN (16:26)
[2020-03-26 17:48] VITALS: BP 131/65; TEMP 97.8
== END 2020-03-26 18:40 | disposition home or self-care (01) | DRG 291 ==
LOC: BURMED 03-04 14:50
PROVIDERS: ADMIT Family Medicine; ATTEND Family Medicine
DX: I13.0 Hypertensive heart and chronic kidney disease with heart failure and stage 1 through stage 4 chronic kidney disease, or unspecified chronic kidney disease (principal); I50.33 Acute on chronic diastolic (congestive) heart failure; N18.4 Chronic kidney disease, stage 4 (severe); Z68.44 Body mass index [BMI] 60.0-69.9, adult; J90 Pleural effusion, not elsewhere classified; L03.115 Cellulitis of right lower limb; E66.01 Morbid (severe) obesity due to excess calories; E78.5 Hyperlipidemia, unspecified; F32.9 Major depressive disorder, single episode, unspecified; D63.1 Anemia in chronic kidney disease; R53.81 Other malaise; E87.5 Hyperkalemia; G47.33 Obstructive sleep apnea (adult) (pediatric); R09.02 Hypoxemia; E11.22 Type 2 diabetes mellitus with diabetic chronic kidney disease; Z79.4 Long term (current) use of insulin; Z89.422 Acquired absence of other left toe(s)
CPT/HCPCS: 36415; 36416; 71045; 80048; 80053; 82565; 83880; 85014; 85018; 85025; 85049; 85379; J1644; J1650; J1815; Q0162

== ENCOUNTER 2020-03-27 14:53 | Emergency (ER) | payer OTHER ==
--- NOTE | 2020-03-27 16:06 | RAD ---
PELVIS ONE VIEW: 03/27/20 Sensitivity of the study is slightly limited due to overlying soft tissues. No gross fracture was javier dent. There is no widening of the symphysis and the SI joints are symmetrical. As best as I can see, the arcuate lines of the sacrum are intact. The pubic rings appear intact. The hip joints are symmetr ical. IMPRESSION: No acute finding. POS: HOME
--- NOTE | 2020-03-27 16:10 | RAD ---
RIGHT HIP TWO VIEWS: 03/27/20 Comparison is made with the film of the pelvis done at the same time. Visualization of the hips as de creased sensitivity due to the overlying soft tissues. Allowing for this, there were no areas strongl y suspicious for fracture. The joint space is normal in width. There is no dislocation. Where the up per part of the femoral neck meets the femoral head, one could argue that there is a very minimal acu te angle here. Nevertheless, everything else here looks normal on all other views. I doubt this is si gnificant. The adjacent pubic ring appears intact. Faint femoral artery calcifications are seen nearb y. IMPRESSION: No definite acute findings. Should pain persists over time, then a CT of the area to show finer detai l would be needed. Currently my level of suspicion of bony fracture is low. Discussed with Dr. Dempsey at 1600 on 03/27/20. POS: HOME
== END 2020-03-27 16:45 | disposition home or self-care (01) ==
LOC: BURERS 14:53
DX: S70.01XA Contusion of right hip, initial encounter (principal); E78.5 Hyperlipidemia, unspecified; E78.00 Pure hypercholesterolemia, unspecified; E11.9 Type 2 diabetes mellitus without complications; I10 Essential (primary) hypertension; F41.9 Anxiety disorder, unspecified; F32.9 Major depressive disorder, single episode, unspecified; W06.XXXA Fall from bed, initial encounter
CPT/HCPCS: 72170

== ENCOUNTER 2023-03-11 00:06 | Emergency (ER) | payer OTHER ==
[2023-03-11] MEDS ORDERED: Vancomycin 1 GM VIAL ONE ×2 (00:45→00:46)
[2023-03-11 01:01] LABS: #Basophils 0.1 thou/uL (0.0-0.2); #Eosinphils 0.3 thou/uL (0.0-0.7); #Lymphocytes 1.9 thou/uL (1.20-3.40); #Monocytes 0.7 thou/uL (0.11-0.59); #Neutrophils 8.2 thou/uL (1.40-6.50); %Basophils 0.7 % (0.0-1.0); %Eosinophils 2.6 % (0.0-10.0); %Lymphocytes 16.9 % (21.0-51.0); %Monocytes 5.9 % (0.0-10.0); %Neutrophils 73.9 % (42.0-75.0); Mean Corpuscular HGB CONC 33.6 g/dL (32.0-36.0); Mean Corpuscular Volume 95.3 fl (78.0-98.0); Mean Platelet Volume 5.7 fL (7.4-10.4); Platelet Count 269 10x3/uL (130-400); Red Blood Cell (RBC) Count 3.44 mill/uL (4.20-5.40); White Blood Cell (WBC) Count 11.1 10x3/uL (4.8-10.8)
[2023-03-11 01:11] LABS: INR-International Normal Ratio 1.1; PTT 29.6 sec (22.9-36.1); Prothrombin Time 14.7 sec (12.0-14.7)
[2023-03-11 01:18] LABS: CRP (Inflammatory) 1.23 mg/dL (= or < 0.5); Magnesium 1.6 mg/dL (1.6-2.6)
[2023-03-11 01:21] LABS: ALT (SGPT) 27 U/L (8-55); AST (SGOT) 20 U/L (5-34); Albumin 3.7 g/dL (3.5-5.0); Alkaline Phosphatase 222 U/L (40-110); Anion Gap 17 mmol/L (10-20); BUN (Urea Nitrogen) 70 mg/dL (9.8-20.1); Bilirubin, Total 0.5 mg/dL (0.2-1.2); CK (CPK) 30 U/L (29-168); Calc. Creatinine Clearance 0 mL/min (70-130); Calcium 8.9 mg/dL (7.8-10.44); Carbon Dioxide 22 mmol/L (22-29); Chloride 108 mmol/L (98-107); Estimated GFR 25; Globulin 3.4 g/dL (2.4-3.5); Glucose 223 mg/dL (70-105); Potassium 4.6 mmol/L (3.5-5.1); Protein, Total 7.1 g/dL (6.0-8.3); Sodium 142 mmol/L (136-145)
[2023-03-11] MEDS ORDERED: methylPREDNISolone Sod Succ/PF 125 MG/2 ML VIAL ONE (01:29)
[2023-03-11] MEDS ORDERED: diphenhydrAMINE 12.5 MG/5 ML UDCUP ONE (01:29)
[2023-03-11] MEDS ORDERED: diphenhydrAMINE 50 MG/ML VIAL ONE (01:34)
[2023-03-11 01:50] LABS: SARS-CoV-2 NAA Rapid Test Not Detected (NotDetected)
[2023-03-11] MEDS ORDERED: Cefepime 1 GM VIAL ONE (02:57)
[2023-03-11] MEDS ORDERED: Furosemide 40 MG/4 ML VIAL ONE (02:57)
== END 2023-03-11 04:02 | disposition home or self-care (01) ==
LOC: BURERS 00:06
DX: E11.621 Type 2 diabetes mellitus with foot ulcer (principal); I11.0 Hypertensive heart disease with heart failure; I50.9 Heart failure, unspecified; R60.0 Localized edema; D72.829 Elevated white blood cell count, unspecified; E66.9 Obesity, unspecified; E78.00 Pure hypercholesterolemia, unspecified; Z79.82 Long term (current) use of aspirin; Z79.899 Other long term (current) drug therapy; Z20.822 Contact with and (suspected) exposure to COVID-19
CPT/HCPCS: 36415; 71045; 80053; 82550; 83605; 83735; 83880; 84484; 85025; 85610; 85652; 85730; 86140; 87040; 93005; 96365; 96366; 96367; 96375; J0692; J1200; J1940; J2930; J3370; Q0163; U0002

== ENCOUNTER 2024-06-13 11:17 | Outpatient (CLI) | payer OTHER | END 2024-06-13 11:18 | disposition home or self-care (01) | LOC: BURRAD 11:17 | PROVIDERS: ATTEND Nurse Practitioner Family | DX: J45.40 Moderate persistent asthma, uncomplicated (principal); I51.7 Cardiomegaly; R09.89 Other specified symptoms and signs involving the circulatory and respiratory systems | CPT/HCPCS: 71046 ==

== ENCOUNTER 2024-07-11 09:47 | Emergency (ER) | payer OTHER ==
[2024-07-11 10:14] LABS: #Lymphocytes 0.9 thou/uL (1.20-3.40); #Monocytes 0.4 thou/uL (0.11-0.59); %Basophils 0.6 % (0.0-1.0); %Eosinophils 0.7 % (0.0-10.0); %Lymphocytes 13.8 % (21.0-51.0); %Monocytes 6.7 % (0.0-10.0); %Neutrophils 78.2 % (42.0-75.0); Hematocrit 37.5 % (36.0-47.0); Hemoglobin 11.5 g/dL (12.0-16.0); Mean Corpuscular HGB CONC 30.6 g/dL (32.0-36.0); Mean Corpuscular Hemoglobin 29.9 pg (27.0-31.0); Mean Corpuscular Volume 97.7 fl (78.0-98.0); Mean Platelet Volume 6.7 fL (7.4-10.4); Platelet Count 309 10x3/uL (130-400); RBC Distribution Width 16.8 % (11.5-14.5); Red Blood Cell (RBC) Count 3.84 mill/uL (4.20-5.40); White Blood Cell (WBC) Count 6.3 10x3/uL (4.8-10.8)
[2024-07-11 10:36] LABS: ALT (SGPT) 17 U/L (8-55); AST (SGOT) 29 U/L (5-34); Albumin 3.2 g/dL (3.5-5.0); Alkaline Phosphatase 249 U/L (40-110); Anion Gap 20 mmol/L (10-20); BUN (Urea Nitrogen) 61 mg/dL (9.8-20.1); Bilirubin, Total 0.7 mg/dL (0.2-1.2); Calc. Creatinine Clearance 0 mL/min (70-130); Calcium 9.5 mg/dL (7.8-10.44); Carbon Dioxide 24 mmol/L (22-29); Chloride 104 mmol/L (98-107); Estimated GFR 24; Globulin 4.2 g/dL (2.4-3.5); Potassium 3.9 mmol/L (3.5-5.1); Protein, Total 7.4 g/dL (6.0-8.3); Sodium 144 mmol/L (136-145); Troponin I 0.025 ng/mL (< 0.028)
[2024-07-11 10:39] LABS: Critical Call Chemistry NUR.MB22 @ 1038; Glucose 43 mg/dL (70-105)
[2024-07-11] MEDS ORDERED: Furosemide 40 MG (4 mL) VIAL ONE (10:45)
== END 2024-07-11 13:23 | disposition short-term general hospital (02) ==
LOC: BURERS 09:47
DX: I11.0 Hypertensive heart disease with heart failure (principal); I50.9 Heart failure, unspecified; E11.621 Type 2 diabetes mellitus with foot ulcer; N28.9 Disorder of kidney and ureter, unspecified; L97.529 Non-pressure chronic ulcer of other part of left foot with unspecified severity; E66.01 Morbid (severe) obesity due to excess calories; Z89.412 Acquired absence of left great toe; Z79.899 Other long term (current) drug therapy
CPT/HCPCS: 36416; 71045; 80053; 83880; 84484; 85025; 93005; 94760; 96374; J1940